=== PATIENT | male | born 1960 | race African-American/Black ===

== ENCOUNTER 2020-10-03 23:58 | Emergency (ER) | payer OTHER, MEDICARE ==
[~2020-10-03] VITALS: Ht 180.3 cm; Wt 97.2 kg
[~2020-10-03 23:58] MED LIST: ASPI-986 MT; BACL-141 PO; GABA-533 PO; METF-414 PO; SIMV-43 PO
[2020-10-04 01:11] LABS: BASOPHILS % 0.3 % (0.0-2.0); HEMATOCRIT. 42.5 % (42.0-52.0); HEMOGLOBIN. 13.6 g/dL (14.0-18.0); LYMPHOCYTES % 9.7 % (20.0-50.0); MEAN CORPUSCULAR HEMOGLOBIN 26.9 pg (28.0-32.0); MEAN CORPUSCULAR VOLUME 83.8 fL (80.0-94.0); MEAN PLATELET VOLUME 10.9 fl (7.4-10.4); MONOCYTES % 3.9 % (2.0-8.0); NEUTROPHILS % 86.1 % (40.0-76.0); PLATELET 164 x1000/uL (130-400); RED BLOOD CELL COUNT 5.07 mill/uL (4.7-6.1)
[2020-10-04 01:14] LABS: CHLORIDE 103 mEq/L (98-107)
[2020-10-04 01:14] LABS: CLARITY URINE CLEAR (CLEAR); COLOR URINE YELLOW (YELLOW); KETONES URINE NEGATIVE (NEGATIVE); LEUKOCYTE ESTERASE URINE TRACE (NEGATIVE); NITRITE URINE NEGATIVE (NEGATIVE); OCCULT BLOOD URINE NEGATIVE (NEGATIVE); PROTEIN URINE NEGATIVE (NEGATIVE); SPECIFIC GRAVITY URINE 1.014 (1.005-1.030); UROBILINOGEN URINE 0.2 E.U./dL (0.2-1.0)
[2020-10-04] MEDS ORDERED: FAMOTIDINE 20MG/2ML VIAL IV STA (01:16)
[2020-10-04] MEDS ORDERED: ONDANSETRON HCL 4MG/2ML INJ IV STA (01:16)
[2020-10-04] MEDS ORDERED: MORPHINE SULFATE 4 MG/ML CPJ (NOT FOR IM USE) IV STA (01:16)
[2020-10-04 02:09] LABS: INR 1.1; PROTHROMBIN TIME 11.2 sec (9.6-11.0)
[2020-10-04] MEDS ORDERED: IOHEXOL-350 100 ML BOTTLE ONE (07:12)
[2020-10-04 07:30] VITALS: BP 131/91
== END 2020-10-04 07:50 | disposition short-term general hospital (02) ==
LOC: ER 23:58 → CANBEDREQ 10-04 07:58
DX: R10.9 Unspecified abdominal pain (principal); R94.31 Abnormal electrocardiogram [ECG] [EKG]; E11.65 Type 2 diabetes mellitus with hyperglycemia; E78.00 Pure hypercholesterolemia, unspecified; I10 Essential (primary) hypertension; Z79.899 Other long term (current) drug therapy
CPT/HCPCS: 36415; 71045; 71275; 74174; 76705; 80053; 81003; 83690; 83880; 84484; 85025; 85610; 93005; 96374; 96375; 99285; J2270; J2405; J3490; Q9967; Z7610

== ENCOUNTER 2023-01-12 | Emergency (ER) | payer MEDICAID, MEDICARE, OTHER ==
[~2023-01-12] VITALS: Ht 180.3 cm; Wt 98.0 kg
[2023-01-12 00:36] VITALS: BP 146/80
[2023-01-12] MEDS ORDERED: IBUPROFEN 800MG TABLET PO ONE (07:45)
[2023-01-12] MEDS ORDERED: METOCLOPRAMIDE HCL 10MG TABLET PO ONE (07:45)
[2023-01-12] MEDS ORDERED: FLUT15.844 BOTHNSTRLS (09:01)
[2023-01-12] MEDS ORDERED: TOPUD PO (09:01)
== END 2023-01-12 09:15 | disposition home or self-care (01) ==
LOC: ER
DX: R51.9 Headache, unspecified (principal); J32.9 Chronic sinusitis, unspecified; E11.9 Type 2 diabetes mellitus without complications; E78.00 Pure hypercholesterolemia, unspecified; I10 Essential (primary) hypertension; Z79.82 Long term (current) use of aspirin
CPT/HCPCS: 70450; 99284; J8597

== ENCOUNTER 2024-05-23 23:11 | Emergency (ER) | payer MEDICARE, MEDICAID ==
[~2024-05-23] VITALS: Ht 175.3 cm; Wt 76.0 kg
[~2024-05-23 23:11] MED LIST changes: +FLUT15.844 BOTHNSTRLS; -GABA-533 PO; +GABA-534 PO; +TOPUD PO
[2024-05-23 23:38] VITALS: BP 127/72; PULSE 84; RESP 18; TEMP 98.4; O2SAT 100
[2024-05-24 01:22] LABS: BASOPHILS % 0.9 % (0.0-2.0); EOSINOPHILS % 0.6 % (0.0-5.0); HEMATOCRIT. 43.6 % (42.0-52.0); HEMOGLOBIN. 14.2 g/dL (14.0-18.0); LYMPHOCYTES % 25.5 % (20.0-50.0); MEAN CORPUSCULAR HEMOGLOBIN 27.6 pg (28.0-32.0); MEAN CORPUSCULAR HGB CONC 32.7 g/dL (31.0-37.0); MEAN CORPUSCULAR VOLUME 84.4 fL (80.0-94.0); MEAN PLATELET VOLUME 9.5 fl (7.4-10.4); MONOCYTES % 10.7 % (2.0-8.0); NEUTROPHILS % 62.3 % (40.0-76.0); PLATELET 171 x1000/uL (130-400); RED BLOOD CELL COUNT 5.16 mill/uL (4.7-6.1); RED CELL DISTRIBUTION WIDTH 14.8 % (11.6-14.6); WHITE BLOOD COUNT 8.5 x1000/uL (4.5-11.0)
[2024-05-24 01:26] LABS: CHLORIDE 108 mEq/L (98-107); SODIUM 139 mEq/L (136-145)
[2024-05-24 01:27] LABS: CARBON DIOXIDE 23 mEq/L (21-32)
[2024-05-24 01:28] LABS: CALCIUM 9.4 mg/dL (8.7-10.4)
[2024-05-24 01:32] LABS: GLUCOSE 122 mg/dL (70-105); UREA NITROGEN BLOOD 16 mg/dL (9-23)
[2024-05-24 01:45] LABS: BETA HYDROXYBUTYRATE 0.4 mMol/L (0.0-0.3)
== END 2024-05-24 02:16 | disposition home or self-care (01) ==
LOC: ER 23:11
DX: E11.65 Type 2 diabetes mellitus with hyperglycemia (principal); E78.00 Pure hypercholesterolemia, unspecified; I10 Essential (primary) hypertension; R20.2 Paresthesia of skin; Z79.899 Other long term (current) drug therapy
CPT/HCPCS: 36415; 80048; 82010; 85025; 99283